=== PATIENT | female | born 1995 | race Caucasian/White ===

== ENCOUNTER 2017-05-26 14:07 | Emergency (ER) | payer OTHER ==
[~2017-05-26] VITALS: Ht 182.9 cm; Wt 77.3 kg
[~2017-05-26 14:07] MED LIST: MOTRIN 800800 MG/TAB PO; PERCOCET 325 MG1 TA2 PO; PRENATAL1 TA7 PO
[2017-05-26 14:24] VITALS: TEMP 98.2
[2017-05-26] MEDS ORDERED: NORA-BE0.35 MG PO (14:27)
[2017-05-26 15:33] LABS: ALANINE AMINOTRANSFERASE 18 U/L (9-52); ALBUMIN 4.8 gm/dL (3.5-5.0); ALKALINE PHOSPHATASE 67 U/L (50-136); ANION GAP 14 mmol/L (7-16); BILIRUBIN,TOTAL 0.7 mg/dL (0.0-1.0); BLOOD UREA NITROGEN 9 mg/dL (7-17); CALCIUM 9.6 mg/dL (8.4-10.2); CARBON DIOXIDE 24 mmol/L (22-30); CHLORIDE 102 mmol/L (98-107); CREATININE, serum 0.92 mg/dL (0.52-1.25); GLUCOSE 107 mg/dL (74-106); POTASSIUM 3.5 mmol/L (3.4-5.0); SODIUM 140 mmol/L (137-145); TOTAL PROTEIN 7.8 gm/dL (6.4-8.2)
[2017-05-26 16:29] VITALS: BP 110/73
[2017-05-26 17:44] VITALS: PULSE 87
[2017-05-26 19:31] LABS: TROPONIN-I < 0.012 ng/mL (0.000-0.034)
== END 2017-05-26 17:45 | disposition home or self-care (01) ==
LOC: COL.ER 14:07
PROVIDERS: Emergency Medicine
DX: R07.9 Chest pain, unspecified (principal); R00.0 Tachycardia, unspecified; R00.2 Palpitations